=== PATIENT | female | born 2000 | race Two or more races ===

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

== ENCOUNTER 2022-11-07 14:30 | Outpatient (CLI) | payer OTHER ==
[~2022-11-07 14:30] MED LIST: KETO10TA2 PO
== END 2022-11-07 15:26 | disposition home or self-care (01) ==
LOC: PRENATAL 14:30
PROVIDERS: ATTEND Obstetrics & Gynecology Maternal & Fetal Medicine
DX: O35.9XX0 Maternal care for (suspected) fetal abnormality and damage, unspecified, not applicable or unspecified (principal); O35.3XX0 Maternal care for (suspected) damage to fetus from viral disease in mother, not applicable or unspecified; Z3A.24 24 weeks gestation of pregnancy

== ENCOUNTER 2022-11-22 16:07 | Emergency (ER) | payer OTHER ==
[~2022-11-22] VITALS: Ht 154.9 cm; Wt 90.7 kg
== END 2022-11-22 20:47 | disposition home or self-care (01) ==
LOC: ER 16:07
DX: O99.612 Diseases of the digestive system complicating pregnancy, second trimester (principal); K92.89 Other specified diseases of the digestive system; Z3A.26 26 weeks gestation of pregnancy; K52.9 Noninfective gastroenteritis and colitis, unspecified; Z20.822 Contact with and (suspected) exposure to COVID-19

== ENCOUNTER 2022-12-16 16:53 | Outpatient (CLI) | payer OTHER ==
[2022-12-16] MEDS ORDERED: PRENATAL TABLE1 EAC1 PO (17:24)
[2022-12-16] MEDS ORDERED: FOLIC ACID0.8 M1 PO (17:25)
== END 2022-12-17 09:27 | disposition home or self-care (01) ==
LOC: OBS/DEL 16:53
PROVIDERS: ATTEND Specialist
DX: O26.893 Other specified pregnancy related conditions, third trimester (principal); Z3A.29 29 weeks gestation of pregnancy; M54.59 Other low back pain; V43.62XA Car passenger injured in collision with other type car in traffic accident, initial encounter; Y93.89 Activity, other specified; Y92.89 Other specified places as the place of occurrence of the external cause; Y99.8 Other external cause status

== ENCOUNTER 2023-01-02 15:14 | Outpatient (CLI) | payer OTHER ==
[~2023-01-02 15:14] MED LIST changes: +FOLIC ACID0.8 M1 PO; +PRENATAL TABLE1 EAC1 PO
== END 2023-01-02 16:54 | disposition home or self-care (01) ==
LOC: PRENATAL 15:14
PROVIDERS: ATTEND Obstetrics & Gynecology Maternal & Fetal Medicine
DX: O26.849 Uterine size-date discrepancy, unspecified trimester (principal); O35.9XX0 Maternal care for (suspected) fetal abnormality and damage, unspecified, not applicable or unspecified; O36.8199 Decreased fetal movements, unspecified trimester, other fetus; Z3A.32 32 weeks gestation of pregnancy

== ENCOUNTER 2023-02-15 07:57 | Inpatient (IN) | payer OTHER ==
[~2023-02-15] VITALS: Ht 154.9 cm; Wt 94.3 kg
== END 2023-02-17 12:45 | disposition home or self-care (01) | DRG 807 ==
LOC: LDR 07:57 → OB/GYN 20:18
PROVIDERS: ADMIT Specialist; ATTEND Specialist
PROC: 10E0XZZ Delivery of Products of Conception, External Approach (ICD-10-PCS; principal; 2023-02-15)
PROC: 4A1HXCZ Monitoring of Products of Conception, Cardiac Rate, External Approach (ICD-10-PCS; 2023-02-15)
DX: O80 Encounter for full-term uncomplicated delivery (principal); Z37.0 Single live birth; Z3A.38 38 weeks gestation of pregnancy; Z20.822 Contact with and (suspected) exposure to COVID-19